=== PATIENT | female | born 1985 | race Caucasian/White ===

== ENCOUNTER 2017-09-06 20:22 | Observation (INO) | payer SELFPAY ==
[~2017-09-06] VITALS: Ht 162.6 cm; Wt 76.2 kg
[2017-09-06] MEDS ORDERED: DLR(*) 1000 ML BAG 1,000 ML IV PRN ×2 (20:25→23:55)
[2017-09-06] MEDS ORDERED: LR(*) 1000 ML BAG 1,000 ML IV PRN (20:25)
[2017-09-06 20:30] VITALS: BP 107/69; Ht 162.6 cm; Wt 76.2 kg
[2017-09-06 21:58] LABS: PLATELET COUNT, AUTOMATED 306 K/uL (150-450)
[2017-09-06] MEDS ORDERED: PREN-127 PO (23:21)
--- NOTE | 2017-09-06 23:36 | RADIOLOGY IMAGING REPORT ---
FACILITY: [facility] [place] PATIENT NAME: Johnna Jones : 1985 MR: [id number] V: [id number] EXAM DATE: [id number] ORDERING PHYSICIAN: ZOFIA HUANG TECHNOLOGIST: Location: [facility] Patient: Johnna Jones : 1985 Visit/Account:[id number] Date of Sevice: 09/06/2017 EXAMINATION: DETAILED OB ULTRASOUND DATE: 09/06/2017 9:43 PM. INDICATION: Bleeding no care. COMPARISON: None. TECHNIQUE: Grayscale, color Doppler and M-mode ultrasound images of the fetus and maternal organs wer e obtained. FINDINGS: Reportedly uncertain dates. Number of fetuses: 1 position: Breech Placental location: Anterior, no previa. Cervix: The uterine cervix measures 5.0 cm in length and is closed. Amniotic fluid volume: The maximum vertical pocket measures 7.22 cm and the amniotic fluid index is 2 0.1. Biometry as follows: Biparietal diameter: 6.47 cm 26 weeks, 2 days Head circumference: 23.92 cm 26 weeks, 0 days Abdominal circumference: 21.67 cm 26 weeks, 2 days Femur length: 4.68 cm 25 weeks, 5 days Average age by ultrasound: 26 weeks, 1 day Estimated weight: 871 gm ANATOMY Intracranial contents: Grossly normal Spine: Normal. Profile/Face: Normal. Heart: Normal. The heart rate is 152 bpm. Stomach: Normal. Umbilical cord insertion: Normal. Kidneys: Normal. Bladder: Normal. Number of cord vessels: Normal. Upper Extremities: Unremarkable Lower Extremities: Unremarkable IMPRESSION: 1. Single intrauterine gestation with average ultrasound age of 26 weeks 1 day within the estimated date of delivery based on this age of 1012/12/2017. 2. anatomic survey is unremarkable. 3. Normal uterine cervix, no placenta previa. Report Dictated By: Andres Kaplan MD at 09/06/2017 11:21 PM Report E-Signed By: Andres Kaplan MD at 09/06/2017 11:32 PM WSN:[id number]
[2017-09-07] MEDS ORDERED: ONDANSETRON 4 MG ODT TABDP SL PRN (00:10)
--- NOTE | 2017-09-07 00:22 | History & Physical ---
History of Present Illness Age of Patient: 31 : 2 Para or TPAL: 1001 EDC per LMP: Nov 10, 2017 EDC per U/S: Dec 12, 2017 Estimated Gestational Age: 26.1 Chief Complaint BLEEDING History of Present Illness The patient is a 31 year old 2 para 1001 admitted at 26 1/7 weeks estimated gestational age with an estimated date of delivery 12/12/17. Patient is admitted with complaint of bleeding. Good movement and occasional cramping. She was evaluated for active labor. She had course complicated by no care. Patient travels weekly with [employer] and hasn't established care. She has had one other episode of bleeding this a few months ago and was given RhoGAM. 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 She reports smoking two cigarettes a day and smokes marijuana which she states helps with her bipolar mood disorder. History Patient's Blood Type: O Negative Allergies: Coded Allergies: No Known Drug Allergies (Unverified , 09/06/17) Med Rec Home Meds Reported Medications Vits W-Ca,Fe,Fa(<1MG) ( VITAMINS) 1 Each Tablet, 1 EACH PO DAILY, TAB 09/06/17 Review of Systems Constitutional: No Fever, No Weight Loss, No Weight Gain Neurological: No Syncope, No Confusion, No Weakness Eyes: No Vision Change, No Loss of Vision ENT: No Hearing Loss, No Sinus Congestion Cardiovascular: No Chest Pain, No Palpitations Respiratory: No Shortness of Breath, No Cough Gastrointestinal: No Nausea, No Vomiting Genitourinary: No Dysuria, No Hematuria Musculoskeletal: No Pain, No Sprain, No Strain Psychiatric: Other (bipolar), No Depression, No Anxiety Exam General Exam Vital Signs Vital Signs Date Time Temp Pulse Resp B/P (MAP) Pulse Ox O2 Delivery O2 Flow Rate FiO2 09/07/17 00:29 97.9 61 18 110/61 General Apperance: Alert/Awake/No Acute Distress Neuro: No Gross deficits Eyes: Normal Extraocular Movement & Vison ENT: Normal Cardiovascular: Regular Rate and Rhythm Respiratory: No Respiratory Distress, Clear to Auscultation Abdomen: Soft, Non-Tender, Non-Distended, Gravid - Non-Tender : Normal Musculoskeletal: No Weakness/Pain Extremities: No Cyanosis,Clubbing or Edema Integumentary: Skin Intact without Lesions or Rash Psychological: Alert & Oriented X3, Appropriate Mood & Affect Cervical Dialation: 0 Presentation: Madi Breech Uterine Contractions(Q min): 0 Fetus Heart Tones: 130 Heart Tone Variabilty: Moderate FHT Category: I Medical Decision Making Data Points Result Diagram: 09/06/17214009/06/172140 Assessment and Plan Problems: (1) Insufficient care in second trimester Assessment & Plan: reggie labs and encouraged to establish care. Will see if records available for previous visit in [place] which may improve dating with an earlier ultrasound. She reports bleeding earlier in and receiving RhoGAM at that visit. (2) Vaginal bleeding in Assessment & Plan: no previa, no sign of abruption, cervix 5 cm unclear why she had bleeding, worked up for RhoGAM Copies to: ZOFIA HUANG MD, JOHN MD Sep 07, 2017 00:22
[2017-09-07 00:29] VITALS: BP 110/61
[2017-09-07] MEDS ORDERED: METRONIDAZOLE 500 MG TABLET PO ONE (07:45)
--- NOTE | 2017-09-07 08:01 | Labor Progress Note ---
Labor Subjective Progress Notes Subjective movement, no contractions no bleeding. Labor Pain: Comfortable Labor Objective Vital Signs Vital Signs Date Time Temp Pulse Resp B/P (MAP) Pulse Ox O2 Delivery O2 Flow Rate FiO2 09/07/17 00:29 97.9 61 18 110/61 09/06/17 20:30 97 Room Air Uterine Contractions(Q min): 0 Fetus Heart Tones: 130 FHT Category: I Other Result Diagram: 09/06/17214009/06/172140 Assessment and Plan Hospital Day: 2 [employer] DES[employer] Assessment: Stable [employer] DES[employer]ER Plan: Discharge Home Today Problems: (1) Insufficient care in second trimester (2) Vaginal bleeding in Assessment & Plan: no further bleeding, received Rho JENAE, will treat positive trichomonas with flagyl 2 grams po x1 and ask partner to be treated ZOFIA HUANG MD Sep 07, 2017 08:01
== END 2017-09-07 08:31 | disposition home or self-care (01) ==
LOC: OB 20:22
PROVIDERS: ADMIT Obstetrics & Gynecology; ATTEND Obstetrics & Gynecology
DX: O46.92 Antepartum hemorrhage, unspecified, second trimester (principal); O09.32 Supervision of pregnancy with insufficient antenatal care, second trimester; Z3A.26 26 weeks gestation of pregnancy; F12.90 Cannabis use, unspecified, uncomplicated
CPT/HCPCS: 36415; 76811; 80305; 81001; 85461; 87088; 87210; 87491; 87591; G0378; G0379; J2791; S0119; 82040; 82247; 82310; 82374; 82435; 82565; 82947; 84075; 84132; 84155; 84295; 84450; 84460; 84520; 85025; 86592; 86762; 86850; 86900; 86901; 87340